=== PATIENT | male | born 1930 | race Two or more races ===

== ENCOUNTER 2019-10-26 09:55 | Outpatient (CLI) | payer OTHER ==
[~2019-10-26 09:55] MED LIST: ACTOS15 MG PO; ADULT LOW DOSE81 M1 PO; ALTACE10 MG PO; ARICEPT10 MG PO; ATORVASTATIN CA10 MG PO; DIABETA5 MG PO; DUI500 PO; IMIPRAMINE HCL50 MG PO; LANTUS100 U/ML SQ; METFORMIN HYDR100 GM MC; NEURONTIN300 MG PO; NORVASC2.5 M1 PO; ULTRACET PO
== END 2019-10-26 10:58 | disposition home or self-care (01) ==
LOC: RAD 09:55
DX: I15.8 Other secondary hypertension (principal); I10 Essential (primary) hypertension

== ENCOUNTER → 2020-05-29 | Outpatient (CLI) | payer OTHER | END | disposition home or self-care (01) | LOC: RAD 14:21 | PROVIDERS: ATTEND Internal Medicine | DX: R07.89 Other chest pain (principal) ==